=== PATIENT | female | born 1960 | race Caucasian/White ===

== ENCOUNTER → 2016-05-25 | Outpatient (CLI) | payer OTHER ==
--- NOTE | 2016-05-25 13:44 | DI ---
XR C-SPINE 2-3 VW,05/25/2016 11:48 AM: Clinical History: Cervical pain Previous Exam: None at this facility. Findings: AP and lateral views of the cervical spine are obtained, and demonstrate normal vertebral body height . Intervertebral disc height is preserved. There are endplate osteophytes at the sixth level. The pre vertebral soft tissues are unremarkable. The lung apices are clear. Impression: Mild degenerative changes of the cervical spine otherwise unremarkable.
== END ==
LOC: ORTHO 11:55
PROVIDERS: ATTEND Orthopaedic Surgery
DX: M54.2 Cervicalgia (principal); M47.892 Other spondylosis, cervical region
CPT/HCPCS: 72040

== ENCOUNTER → 2016-06-11 | Outpatient (CLI) | payer OTHER ==
--- NOTE | 2016-06-12 08:48 | DI ---
MRI CERVICAL SPINE SCAN, 06/11/2016 12:56 PM: Clinical History: Neck pain. Previous Exam: None. Sequences: Sagittal T1and T2 weighted. Axial T2 PLUS and FE 3D DUAL. Coronal T1 scans through the upp er cervical spine. The vertebral bodies are of normal height and size. There is mild disc space narrowing at C4-5 and mo derate disc space narrowing at C5-6. All cervical disc spaces show desiccation change. The cervical c ord and cerebellar tonsils are normal. The C2-3 and C3-4 disc spaces are normal. C4-5 has a central f ocal disc herniation that is displacing the cord posteriorly and causing spinal canal stenosis in the AP dimension. There is no neural foraminal stenosis. C5-6 as a right anterolateral disc herniation t hat is displacing the right side of the cord posteriorly and causing spinal canal stenosis and right neural foraminal stenosis. There is no left neural foraminal stenosis. C6-7 has a left anterolateral focal disc herniation that is displacing the cord posteriorly and causing spinal canal stenosis in th e AP diameter. There is no neural foraminal stenosis. C7-T1 has a left lateral disc herniation with l eft neural foraminal stenosis but no canal or right neural foraminal stenosis. T1-2 disc space is nor mal. T3-4 has a right lateral disc herniation without canal or left neural foraminal stenosis. There is right neural foraminal stenosis. T4-5 has a bulging but not herniated disc without canal or neural foraminal stenosis. Readin. There is a central focal disc herniation at C4-5 with spinal canal stenosis but no neural foramin al stenosis. 2. There is a right anterolateral disc herniation at C5-6 causing spinal canal and right neural fora cristóbal stenosis. There is no left neural foraminal stenosis. 3. There is a left anterolateral focal disc herniation at C6-7 causing spinal canal stenosis without neural foraminal stenosis. 4. There is a left lateral disc herniation at C7-T1 with left neural foraminal stenosis but no canal or right neural foraminal stenosis. 5. T3-4 has a right lateral disc herniation with right neural foraminal stenosis but no canal or lef t neural foraminal stenosis. 6. There is a bulging but not herniated disc without canal or neural foraminal stenosis at T4-5. The C2-3 and C3-4 disc spaces are normal.
== END ==
LOC: MRI 12:36
PROVIDERS: ATTEND Orthopaedic Surgery
DX: M54.2 Cervicalgia (principal); M50.121 Cervical disc disorder at C4-C5 level with radiculopathy; M50.122 Cervical disc disorder at C5-C6 level with radiculopathy; M50.123 Cervical disc disorder at C6-C7 level with radiculopathy; M51.14 Intervertebral disc disorders with radiculopathy, thoracic region
CPT/HCPCS: 72141

== ENCOUNTER → 2016-08-19 | Outpatient (CLI) | payer OTHER ==
[2016-08-19 11:05] LABS: BASOPHILS # (AUTO) 0.02 10*3/UL; BASOPHILS % (AUTO) 0.3 % (0-1); EOSINOPHILS # (AUTO) 0.17 10*3/UL; EOSINOPHILS % (AUTO) 2.7 % (0-8); HEMATOCRIT 41.2 % (37.0-47.0); HEMOGLOBIN 13.4 g/dL (12.0-16.0); LYMPHOCYTES # (AUTO) 1.86 10*3/uL; MEAN CORPUSCULAR HEMOGLOBIN 27.7 PG (27-31); MEAN CORPUSCULAR HGB CONC 32.5 g/dL (33-37); MEAN CORPUSCULAR VOLUME 85.3 FL (81-99); MEAN PLATELET VOLUME 9.3 FL (7.4-12.2); MONOCYTES # (AUTO) 0.63 10*3/UL (0.3-0.8); MONOCYTES % (AUTO) 9.8 % (5-15); NEUTROPHILS # (AUTO) 3.71 10*3/UL; NEUTROPHILS % (AUTO) 57.9 % (50-80); RED BLOOD COUNT 4.83 10^6/uL (4.20-5.40)
[2016-08-19 11:20] LABS: BILIRUBIN,URINE NEGATIVE (NEG); COLOR,URINE YELLOW; GLUCOSE, URINE (UA) NEGATIVE (NEG); NITRATE,URINE NEGATIVE (NEG); OCCULT BLOOD,URINE NEGATIVE (NEG); PROTEIN,URINE NEGATIVE (NEG); UROBILINOGEN,URINE 0.2 mg/dL (0.2)
[2016-08-19 11:27] LABS: CLARITY,URINE CLEAR (CLEAR); URINE SAMPLE TYPE CLEAN CATCH URINE
[2016-08-19 11:28] LABS: SQUAMOUS EPITHELIAL CELL,UR RARE
[2016-08-19 12:07] LABS: PLATELET MORPHOLOGY COMMENT NORMAL MORPHOLOGY (NORM); RBC MORPHOLOGY COMMENT NORMAL MORPHOLOGY (NORM); WBC MORPHOLOGY COMMENT NORMAL MORPHOLOGY (NORM)
[2016-08-19 13:30] LABS: BLOOD UREA NITROGEN 21 mg/dL (7-22); BUN/CREATININE RATIO 26.25 (6-20); CALCIUM 9.5 mg/dL (8.7-10.7); EST GLOMERULAR FILTRATION > 60 (>60 ml/min/1.73m(2)); SERUM ALBUMIN 4.2 g/dL (3.5-4.8)
[2016-08-19 13:49] LABS: CREATININE, URINE 12.8 MG/DL (15-500)
[2016-08-19 14:16] LABS: CHOL/HDL RATIO 4.59 RATIO (0-4.0); LDL CHOLESTEROL,CALCULATED 141.8 mg/dL
[2016-08-19 14:29] LABS: HEMOGLOBIN A1C 6.83 % (4.2-6.0)
== END ==
LOC: LAB 10:42
DX: E11.9 Type 2 diabetes mellitus without complications (principal); I10 Essential (primary) hypertension; E55.9 Vitamin D deficiency, unspecified; E78.5 Hyperlipidemia, unspecified
CPT/HCPCS: 36415; 80053; 80061; 81001; 82043; 82306; 83036; 84443; 85025